=== PATIENT | female | born 1970 | race Hispanic/Latino ===

== ENCOUNTER 2018-05-09 20:05 | Emergency (ER) | payer BC ==
[~2018-05-09] VITALS: Ht 157.5 cm; Wt 85.3 kg
[2018-05-09 21:27] LABS: PLATELET COUNT 201 K/uL (152-353)
[2018-05-09 21:33] LABS: POTASSIUM 3.4 mmol/L (3.6-5.2)
[2018-05-10 00:08] VITALS: BP 142/70; TEMP 97.9
== END 2018-05-10 00:10 | disposition home or self-care (01) ==
LOC: ED 20:05
PROVIDERS: Internal Medicine
DX: R10.13 Epigastric pain (principal); R11.2 Nausea with vomiting, unspecified
CPT/HCPCS: 36415; 80053; 81000; 82150; 83690; 85027; 93005; 96374; 96375; 99284; J2270; J2405; Q9963